=== PATIENT | male | born 1935 | race Caucasian/White ===

== ENCOUNTER 2016-05-29 09:14 | Inpatient (IN) | payer MEDICARE, OTHER ==
[~2016-05-29 09:14] MED LIST: BROVANA15 MCG/22 INH; COREG25 M1 PO; CULTURELLE CAP1 EAC1 PO; FLOMAX0.4 M1 PO; GUAIFENESIN ER600 MG PO; HUMALOG MI100 UNITS1 SC; IPRAT-ALBUT 0.5-3 ML AERO NEB; LASIX80 M1 PO; MS CONTIN30 M1 PO; MULTI VITAMIN1 EAC2 PO; NEURONTIN300 M1 PO; PREDNISONE1 M1 PO; PULMICORT0.5 MG/22 INH; VITAMIN D31000 UNI3 PO; XARELTO20 M1 PO; ZESTRIL5 M1 PO
[2016-05-29] MEDS ORDERED: PREDNISONE10 M1 PO (09:59)
[2016-05-29] MEDS ORDERED: SENNA8.6 M2 PO (10:00)
[2016-05-29] MEDS ORDERED: XARELTO20 M1 PO (10:01)
[2016-05-29] MEDS ORDERED: MIRALAX17 G2 PO (10:02)
[2016-05-29] MEDS ORDERED: FLOMAX0.4 M1 PO (10:03)
[2016-05-29] MEDS ORDERED: SERTRALINE HCL50 M4 PO (10:04)
[2016-05-29] MEDS ORDERED: BROVANA15 MCG/22 INH (10:04)
[2016-05-29] MEDS ORDERED: GLUCOPHAGE500 M3 PO (10:06)
[2016-05-29] MEDS ORDERED: HUMALOG MI100 UNITS1 SC (10:07)
[2016-05-29] MEDS ORDERED: DUONEB INH (10:08)
[2016-05-29] MEDS ORDERED: IPRAT-ALBUT 0.5-3 ML INH (12:47)
[2016-05-29] MEDS ORDERED: GLUCAGON HCL1 MG SC (12:51)
[2016-05-29] MEDS ORDERED: PROAIR HFA8.5 GM INH (12:52)
[2016-05-29] MEDS ORDERED: TYLENOL325 M2 PO (12:52)
[2016-05-29] MEDS ORDERED: CULTURELLE1 EAC1 PO (12:53)
[2016-05-29] MEDS ORDERED: TUMS200 MG PO (12:53)
[2016-05-29] MEDS ORDERED: ATIVAN0.5 M1 PO (12:54)
[2016-05-29] MEDS ORDERED: BISCOLAX10 MG PR (12:59)
[2016-05-29] MEDS ORDERED: CITRATE OF MAG300 M1 PO (13:00)
[2016-05-29] MEDS ORDERED: MILK OF MAGNESIA PO (13:01)
[2016-05-29] MEDS ORDERED: OCEAN104 ML (13:02)
[2016-05-29 13:38] LABS: BASO % 0.1 % (0-2); HCT-HEMATOCRIT 35.2 % (36.0-53.5); HGB-HEMOGLOBIN 11.3 gm/dl (13.5-17.0); IMMATURE GRANULOCYTES ABSOLUTE 0.03 tho/cmm (0-0.03); IMMATURE GRANULOCYTES PERCENT 0.3 % (0-0.3); LYMPH % 7.9 % (20-45); LYMPH ABSOLUTE COUNT 0.9 tho/cmm (0.8-4.5); MCH (MEAN CORPUSCULAR HGB) 31.6 pg (28.0-32.0); MCHC MEAN CORPUSCULAR HGB CONC 32.1 % (32.0-36.0); MCV (MEAN CELL VOLUME) 98.3 fl (82.0-96.0); MEAN PLATELET VOLUME 9.3 cmc (9.4-12.4); MONO % 7.9 % (0-12); MONOCYTE ABSOLUTE COUNT 0.9 tho/cmm (0.0-1.2); NEUTROPHIL ABSOLUTE COUNT 9.8 tho/cmm (1.6-8.0); NEUTROPHIL-AUTOMATED 9.8 tho/cmm (1.6-8.0); NEUTROPHILS % 83.8 % (40-80); PLATELET COUNT 347 tho/cmm (150-450); RED BLOOD COUNT 3.58 mil/cmm (4.40-5.70); RED CELL DISTRIBUTION WIDTH 14.8 % (12.4-16.4); WHITE BLOOD COUNT 11.7 tho/cmm (4.0-10.0)
[2016-05-29 13:57] LABS: ALB/GLOB RATIO 0.8 (0.8-2.0); ALBUMIN 2.6 g/dl (3.5-5.0); ALKALINE PHOSPHATASE 72 U/L (33-138); ALT/SGPT 20 U/L (12-78); ANION GAP 9 mmol/L (0-20); AST/SGOT 19 U/L (10-40); BILIRUBIN,TOTAL 0.5 mg/dl (0.0-1.5); BLOOD UREA NITROGEN 14 mg/dl (6-24); CALCIUM 8.8 mg/dl (8.5-10.5); CARBON DIOXIDE-VENOUS 36 mmol/L (22-32); CHLORIDE 96 mmol/l (96-110); CREATININE 0.46 mg/dl (0.60-1.30); GLUCOSE 125 mg/dL (70-110); POTASSIUM 3.8 mmol/L (3.7-5.1); SODIUM 137 mmol/L (135-145); eGFR VALUE FOR BLACK >90 mL/Min
[2016-05-29 14:00] LABS: INR 1.4 INR (0.9-1.1); PROTHROMBIN TIME 16.6 SECONDS (9.0-13.6)
[2016-05-31 06:56] LABS: BASO % 0.1 % (0-2); EOS % 0.1 % (0-7); HGB-HEMOGLOBIN 11.7 gm/dl (13.5-17.0); IMMATURE GRANULOCYTES ABSOLUTE 0.04 tho/cmm (0-0.03); IMMATURE GRANULOCYTES PERCENT 0.3 % (0-0.3); LYMPH % 7.6 % (20-45); LYMPH ABSOLUTE COUNT 1.1 tho/cmm (0.8-4.5); MCH (MEAN CORPUSCULAR HGB) 31.4 pg (28.0-32.0); MCHC MEAN CORPUSCULAR HGB CONC 32.5 % (32.0-36.0); MCV (MEAN CELL VOLUME) 96.5 fl (82.0-96.0); MEAN PLATELET VOLUME 9.5 cmc (9.4-12.4); MONO % 9.9 % (0-12); MONOCYTE ABSOLUTE COUNT 1.5 tho/cmm (0.0-1.2); NEUTROPHIL ABSOLUTE COUNT 12.3 tho/cmm (1.6-8.0); NEUTROPHIL-AUTOMATED 12.3 tho/cmm (1.6-8.0); PLATELET COUNT 411 tho/cmm (150-450); RED BLOOD COUNT 3.73 mil/cmm (4.40-5.70); RED CELL DISTRIBUTION WIDTH 14.6 % (12.4-16.4); WHITE BLOOD COUNT 14.9 tho/cmm (4.0-10.0)
[2016-05-31 07:04] LABS: ANION GAP 11 mmol/L (0-20); BLOOD UREA NITROGEN 12 mg/dl (6-24); CALCIUM 8.7 mg/dl (8.5-10.5); CARBON DIOXIDE-VENOUS 31 mmol/L (22-32); CHLORIDE 100 mmol/l (96-110); CREATININE 0.44 mg/dl (0.60-1.30); GLUCOSE 142 mg/dL (70-110); SODIUM 138 mmol/L (135-145); eGFR VALUE FOR BLACK >90 mL/Min
[2016-06-01 20:19] LABS: BASO % 0.2 % (0-2); EOS % 0.5 % (0-7); EOSINOPHIL ABSOLUTE COUNT 0.1 tho/cmm (0.0-0.7); HCT-HEMATOCRIT 33.1 % (36.0-53.5); HGB-HEMOGLOBIN 10.7 gm/dl (13.5-17.0); IMMATURE GRANULOCYTES ABSOLUTE 0.06 tho/cmm (0-0.03); IMMATURE GRANULOCYTES PERCENT 0.5 % (0-0.3); LYMPH % 8.2 % (20-45); LYMPH ABSOLUTE COUNT 1.1 tho/cmm (0.8-4.5); MCH (MEAN CORPUSCULAR HGB) 31.6 pg (28.0-32.0); MCHC MEAN CORPUSCULAR HGB CONC 32.3 % (32.0-36.0); MCV (MEAN CELL VOLUME) 97.6 fl (82.0-96.0); MEAN PLATELET VOLUME 9.1 cmc (9.4-12.4); MONO % 10.7 % (0-12); MONOCYTE ABSOLUTE COUNT 1.4 tho/cmm (0.0-1.2); NEUTROPHIL ABSOLUTE COUNT 10.6 tho/cmm (1.6-8.0); NEUTROPHIL-AUTOMATED 10.6 tho/cmm (1.6-8.0); NEUTROPHILS % 79.9 % (40-80); PLATELET COUNT 380 tho/cmm (150-450); RED BLOOD COUNT 3.39 mil/cmm (4.40-5.70); RED CELL DISTRIBUTION WIDTH 14.6 % (12.4-16.4); WHITE BLOOD COUNT 13.2 tho/cmm (4.0-10.0)
[2016-06-01 20:23] LABS: INR 1.5 INR (0.9-1.1); PROTHROMBIN TIME 17.2 SECONDS (9.0-13.6)
[2016-06-01 20:30] LABS: ANION GAP 9 mmol/L (0-20); BLOOD UREA NITROGEN 15 mg/dl (6-24); CARBON DIOXIDE-VENOUS 30 mmol/L (22-32); CHLORIDE 103 mmol/l (96-110); CREATININE 0.41 mg/dl (0.60-1.30); GLUCOSE 105 mg/dL (70-110); POTASSIUM 4.1 mmol/L (3.7-5.1); SODIUM 138 mmol/L (135-145); eGFR VALUE FOR BLACK >90 mL/Min
[2016-06-01 21:34] LABS: URINE BILIRUBIN NEGATIVE (NEG); URINE BLOOD LARGE (NEG); URINE GLUCOSE (UA) NEGATIVE (NEG); URINE KETONE NEGATIVE (NEG); URINE LEUKOCYTE ESTERASE POSITIVE (NEG); URINE NITRITE POSITIVE (NEG); URINE PROTEIN MODERATE (NEG); URINE SPECIFIC GRAVITY 1.025 (1.003-1.030)
[2016-06-01 21:35] LABS: URINE APPEARANCE CLOUDY; URINE COLOR RED
[2016-06-01 21:40] LABS: URINE RBC FULL FIELD /[HPF] (0-5)
[2016-06-01 21:41] LABS: URINE EPITHELIAL CELLS 0 /[HPF] (0-10)
[2016-06-02 01:45] LABS: HCT-HEMATOCRIT 34.2 % (36.0-53.5); HGB-HEMOGLOBIN 11.1 gm/dl (13.5-17.0); MCH (MEAN CORPUSCULAR HGB) 31.6 pg (28.0-32.0); MCHC MEAN CORPUSCULAR HGB CONC 32.5 % (32.0-36.0); MCV (MEAN CELL VOLUME) 97.4 fl (82.0-96.0); MEAN PLATELET VOLUME 9.2 cmc (9.4-12.4); NEUTROPHIL-AUTOMATED 10.4 tho/cmm (1.6-8.0); PLATELET COUNT 384 tho/cmm (150-450); RED BLOOD COUNT 3.51 mil/cmm (4.40-5.70); RED CELL DISTRIBUTION WIDTH 14.6 % (12.4-16.4); WHITE BLOOD COUNT 13.2 tho/cmm (4.0-10.0)
[2016-06-02 06:44] LABS: BAND % 9 % (0-20); BAND ABSOLUTE COUNT 1.2 tho/cmm (0-2.0)
[2016-06-02 13:37] LABS: ANION GAP 8 mmol/L (0-20); BLOOD UREA NITROGEN 11 mg/dl (6-24); CALCIUM 8.2 mg/dl (8.5-10.5); CARBON DIOXIDE-VENOUS 33 mmol/L (22-32); CHLORIDE 101 mmol/l (96-110); CREATININE 0.42 mg/dl (0.60-1.30); GLUCOSE 111 mg/dL (70-110); POTASSIUM 3.9 mmol/L (3.7-5.1); SODIUM 138 mmol/L (135-145); eGFR VALUE FOR BLACK >90 mL/Min
[2016-06-26] MEDS ORDERED: OMEPRAZOLE20 M3 PO (11:09)
[2016-06-26] MEDS ORDERED: CULTURELLE1 EAC1 PO (11:29)
[2016-06-26] MEDS ORDERED: CLEOCIN HCL300 M1 PO (11:30)
[2016-06-26] MEDS ORDERED: IPRAT-ALBUT 0.5-3 ML INH (11:36)
[2016-10-30] MEDS ORDERED: TOBREX5 M1 EACH EYE (13:16)
[2016-10-30] MEDS ORDERED: BACLOFEN10 M1 PO (13:17)
== END 2016-06-03 13:30 | DRG 570 ==
LOC: WCC 09:14 → EMR2 10:41 → BURN 11:10
PROVIDERS: Family Medicine; Internal Medicine; Nurse Practitioner Acute Care; Physician Assistant Surgical; Registered Nurse; Surgery; ADMIT Surgery
PROC: 0JBL0ZZ Excision of Right Upper Leg Subcutaneous Tissue and Fascia, Open Approach (ICD-10-PCS; principal; 2016-06-02)
DX: L89.214 Pressure ulcer of right hip, stage 4 (principal); J96.11 Chronic respiratory failure with hypoxia; I95.9 Hypotension, unspecified; I11.0 Hypertensive heart disease with heart failure; I42.9 Cardiomyopathy, unspecified; E11.40 Type 2 diabetes mellitus with diabetic neuropathy, unspecified; I50.9 Heart failure, unspecified; L03.115 Cellulitis of right lower limb; I50.40 Unspecified combined systolic (congestive) and diastolic (congestive) heart failure; M48.00 Spinal stenosis, site unspecified; R11.0 Nausea; K59.00 Constipation, unspecified; H91.90 Unspecified hearing loss, unspecified ear; F41.9 Anxiety disorder, unspecified; J44.9 Chronic obstructive pulmonary disease, unspecified; Z88.0 Allergy status to penicillin; Z88.8 Allergy status to other drugs, medicaments and biological substances; Z87.891 Personal history of nicotine dependence; Z99.81 Dependence on supplemental oxygen; Z86.718 Personal history of other venous thrombosis and embolism; Z86.711 Personal history of pulmonary embolism; Z85.46 Personal history of malignant neoplasm of prostate; Z79.52 Long term (current) use of systemic steroids
CPT/HCPCS: G0463; J0171; J1335; J1650; J1815; J2405; J3370; J7030; J7040; J7050; J7512; J7999